=== PATIENT | male | born 1980 | race Asian ===

== ENCOUNTER 2018-06-27 08:50 | Emergency (ER) | payer BC ==
[2018-06-27 08:56] VITALS: BMI 20.9
[2018-06-27] MEDS ORDERED: LACTATED RINGERS SOLUTION 1000 ML INFUS.BAG IV ONE ×2 (09:07→10:33)
[2018-06-27] MEDS ORDERED: ONDANSETRON 4 MG/2 ML VIAL IVPUSH ONE ×2 (09:07→10:35)
[2018-06-27] MEDS ORDERED: ONDANSETRON 4 MG/2 ML VIAL ONE (09:11)
[2018-06-27] MEDS ORDERED: FAMOTIDINE 20 MG/50 ML IVPB 20 MG/50 ML MG IVPB ONE ×2 (09:14→09:16)
--- NOTE | 2018-06-27 09:21 | PDOC ---
Attending Attestation - Resident Resident Name: Sumanth Muse - ED Attending Attestation I have performed the following: I have examined & evaluated the patient, The case was reviewed & discussed with the resident, I agree w/resident's findings & plan - HPI HPI: 06/27/18 09:18 38 YOM with no medical history presenting with abdominal cramping, n/v/d, x 2 days, no fevers. +suspicious food intake, ate raw oysters and [place] food on [place] night, and then the following day developed epigastric abdominal cramping. +watery diarrhea resolving, residual nausea and NBNB emesis. no travel. no surgeries. no ETOH binge drinking, tobacco or drug use. - Physicial Exam PE: 06/27/18 09:19 NAD, well appearing, MMM, nl conjunctiva, anicteric; neck supple. lungs clear, RRR, abdomen soft nontender. No CVAT . MARC x4. No peripheral edema. normal color for ethnicity, WWP. - Medical Decision Making 06/27/18 09:16 38 YOM with no medical history presenting with abdominal cramping, n/v/d, x 2 days, no fevers. +suspicious food intake, ate raw oysters and [place] food on Thursday night, and then the following day developed epigastric abdominal cramping. +watery diarrhea resolving, residual nausea and NBNB emesis. no travel. no surgeries. no ETOH binge drinking, tobacco or drug use. DDx abdominal pain: gastroenteritis, food poisoning, viral syndrome. GERD, PUD , esophageal spasm, pancreatitis, hepatitis, constipation, colitis, biliary colic, clinically doubt: appy or diverticulitis as no lower quad tenderness, doubt ureterolithiasis/renal colic, no cvat or hematuria/urinary sx to suggest infection as well. vitals wnl, no fever, normotensive, HR normal labs and lytes: normal, reassuring LFTs and lipase normal given pepcid, IVF, zofran, with clinical improvement. abdomen soft and benign, non peritoneal to suggest intra abdominal pathology. Dispo: Pt to be discharged in stable condition. Patient and family made aware of impression and plan, return precautions discussed (including but not limited to worsening pain or symptoms), fevers, or signs of infection, chest pain, respiratory distress, inability to tolerate oral intake, dehydration, syncope, or neurologic changes). Follow up with PMD as recommended, follow up information provided, take medications as instructed for duration of time including Zofran for nausea. continue with supportive care, oral fluid hydration , avoid triggers and precipitants. All questions answered to patient's satisfaction and expressed understanding and comfort with this. 06/27/18 09:59
[2018-06-27 09:23] LABS: BASO % 0.6 % (0-2.0); EOS % 1.2 % (0-4.5); HEMATOCRIT 48.7 % (35.4-49); HEMOGLOBIN 16.6 GM/dL (11.7-16.9); MCH 30.3 pg (25.7-33.7); MEAN CELL VOLUME 89.1 fl (80-96); MEAN PLT VOLUME 7.7 fl (7.5-11.1); MONO % 7.2 % (3.8-10.2); PLATELET COUNT 223 K/MM3 (134-434); RBC 5.47 M/mm3 (4.00-5.60); RDW 12.8 % (11.9-15.9); WHITE BLOOD COUNT 4.5 K/mm3 (4.0-10.0)
--- NOTE | 2018-06-27 09:33 | PDOC ---
History of Present Illness <Cami Chavira - Last Filed: 06/27/18 10:01> - General History Source: Patient Exam Limitations: No Limitations - History of Present Illness Initial Comments: 06/27/18 09:20 The patient is a 38M with no PMH who presents to the ER with complaints of nausea, vomiting, and abdominal pain. The patient states that he ate some oysters and other foods 2 evenings ago. Since then, he's had nausea, NBNB vomiting, and watery diarrhea with diffuse abdominal cramping. He denies any blood in his stool, recent abx use, and any abdominal surgeries. He denies testicular pain, dysuria, and discharge. <Sumanth Muse - Last Filed: 06/27/18 12:24> - General Chief Complaint: Nausea/Vomiting Stated Complaint: Nausea/Vomiting/ABD PAIN Time Seen by Provider: 06/27/18 08:59 Past History <Cami Chaviraraffi - Last Filed: 06/27/18 10:01> - Past Medical History COPD: No - Suicide/Smoking/Psychosocial Hx Smoking History: Never smoked <Sumanth Muse - Last Filed: 06/27/18 12:24> - Past Medical History Allergies/Adverse Reactions: Allergies Allergy/AdvReac Type Severity Reaction Status Date / Time No Known Allergies Allergy Verified 06/27/18 08:57 Home Medications: Ambulatory Orders Metoclopramide HCl [Reglan -] 10 mg PO DAILY #10 tablet 06/27/18 Ondansetron [Zofran Odt -] 4 mg SL TID PRN #9 od.tablet 06/27/18 Review of Systems - Review of Systems Able to Perform ROS?: Yes Comments:: 06/27/18 09:34 GENERAL/CONSTITUTIONAL: No fever or chills. No weakness. HEAD, EYES, EARS, NOSE AND THROAT: No change in vision. No ear pain or discharge. No sore throat. CARDIOVASCULAR: No chest pain, palpitations, or lightheadedness. RESPIRATORY: No cough, wheezing, shortness of breath, or hemoptysis. GASTROINTESTINAL: Positive for nausea, vomiting, diarrhea, and abdominal cramping. GENITOURINARY: No dysuria, frequency, hematuria, or change in urination. MUSCULOSKELETAL: No joint or muscle swelling or pain. No neck or back pain. SKIN: No rash or lesions. Is the patient limited Trinidadian proficient: No <Sumanth Muse - Last Filed: 06/27/18 12:24> *Physical Exam - Vital Signs Last Vital Signs Temp Pulse Resp BP Pulse Ox 98.3 F 88 18 132/88 99 06/27/18 08:53 06/27/18 08:53 06/27/18 08:53 06/27/18 08:53 06/27/18 08:53 <Cami Chavira - Last Filed: 06/27/18 10:01> - Vital Signs Last Vital Signs Temp Pulse Resp BP Pulse Ox 98.3 F 88 18 132/88 99 06/27/18 08:53 06/27/18 08:53 06/27/18 08:53 06/27/18 08:53 06/27/18 08:53 - Physical Exam Comments: 06/27/18 09:34 GENERAL: Well developed, well nourished. Awake and alert. No acute distress. HEENT: Normocephalic, atraumatic. Hearing grossly normal. Moist mucous membranes. PERRLA, EOMI. No conjunctival pallor. Sclera are non-icteric. NECK: Supple. Full ROM. CARDIOVASCULAR: Regular rate and rhythm. No murmurs, rubs, or gallops. PULMONARY: No evidence of respiratory distress. Lungs clear to auscultation bilaterally. No wheezing, rales or rhonchi. ABDOMINAL: Soft. Non-tender. Non-distended. No rebound or guarding. GENITOURINARY: No CVA tenderness bilaterally. MUSCULOSKELETAL: Normal range of motion at all joints. No bony deformities or tenderness. EXTREMITIES: No cyanosis. No clubbing. No edema. No calf tenderness or swelling. SKIN: Warm and dry. Normal capillary refill. No rashes. No jaundice. NEUROLOGICAL: Alert, awake, appropriate. Cranial nerves 2-12 grossly intact. Normal speech. Gait is normal without ataxia. PSYCHIATRIC: Cooperative. Good eye contact. Appropriate mood and affect. <Sumanth Muse - Last Filed: 06/27/18 12:24> ED Treatment Course - LABORATORY CBC & Chemistry Diagram: 06/27/18 09:10 06/27/18 09:10 - ADDITIONAL ORDERS Additional order review: Laboratory Results 06/27/18 09:10 Sodium 142 Potassium 4.0 Chloride 106 Carbon Dioxide 25 D Anion Gap 11 BUN 13 Creatinine 1.1 Creat Clearance w eGFR > 60 Random Glucose 112 H D Calcium 9.6 Total Bilirubin 1.5 H AST 19 D ALT 30 Alkaline Phosphatase 69 Total Protein 7.8 Albumin 4.2 Lipase 150 06/27/18 09:10 RBC 5.47 MCV 89.1 MCHC 34.0 RDW 12.8 MPV 7.7 Neutrophils % 59.0 Lymphocytes % 32.0 Monocytes % 7.2 Eosinophils % 1.2 Basophils % 0.6 - Medications Given in the ED: ED Medications Discontinued Medications Generic Name Dose Route Start Last Admin Trade Name Freq PRN Reason Stop Dose Admin Famotidine/Sodium Chloride 20 mg in 50 mls @ 100 mls/hr 06/27/18 09:16 09:17 Pepcid 20 Mg Premixed Ivpb - IVPB 06/27/18 09:45 100 mls/hr ONCE ONE Administration Lactated Ringer's 1,000 ml 06/27/18 09:07 06/27/18 09:11 Lactated Ringers Solution IV 06/27/18 09:08 1,000 ml ONCE ONE Administration Ondansetron HCl 4 mg 06/27/18 09:07 06/27/18 09:17 Zofran Injection IVPUSH 06/27/18 09:08 4 mg ONCE ONE Administration <Cami Chavira - Last Filed: 06/27/18 10:01> - LABORATORY CBC & Chemistry Diagram: 06/27/18 09:10 06/27/18 09:10 - Medications Given in the ED: ED Medications Discontinued Medications Generic Name Dose Route Start Last Admin Trade Name Freq PRN Reason Stop Dose Admin Lactated Ringer's 1,000 ml 06/27/18 09:07 06/27/18 09:11 Lactated Ringers Solution IV 06/27/18 09:08 1,000 ml ONCE ONE Administration Ondansetron HCl 4 mg 06/27/18 09:07 06/27/18 09:17 Zofran Injection IVPUSH 06/27/18 09:08 4 mg ONCE ONE Administration <Sumanth Muse - Last Filed: 06/27/18 12:24> Medical Decision Making - Medical Decision Making 06/27/18 09:35 The patient is a 38M with no PMH who presents to the ER with nausea, vomiting, and diffuse abdominal cramping after having oysters 2 evenings ago. Likely gastroenteritis. Will give fluids, zofran, and pepcid, and check labs including lipase. Pending labs. 06/27/18 10:13 Labs WNL. Tbili elevated to 1.5 but AST/ALT WNL. Pt states that he felt strong cramps as he had a sip of fluids. Will continue hydration and give reglan. 06/27/18 11:32 Pt complaining of worsening pain. Given IV tylenol for cramping and will PO challenge with applesauce and sandwich. 06/27/18 12:24 Pt ate the sandwich and feels much better. Will d/c with PCP f/u. <Sumanth Muse - Last Filed: 06/27/18 12:24> *DC/Admit/Observation/Transfer - Discharge Dispostion Decision to Admit order: No <Cami Chavira - Last Filed: 06/27/18 10:01> - Discharge Dispostion Decision to Admit order: No <Sumanth Muse - Last Filed: 06/27/18 12:24> Diagnosis at time of Disposition: Nausea, vomiting and diarrhea - Discharge Dispostion Disposition: HOME Condition at time of disposition: Improved - Prescriptions Prescriptions: Metoclopramide HCl [Reglan -] 10 mg PO DAILY #10 tablet Ondansetron [Zofran Odt -] 4 mg SL TID PRN #9 od.tablet PRN Reason: Nausea - Referrals Referrals: Kevon Callahan MD [Primary Care Provider] - - Patient Instructions Printed Discharge Instructions: DI for Diarrhea and Traveler's Diarrhea -- Adult, DI for Nausea -- Adult, DI for Vomiting -- Adult Additional Instructions: drink plenty of fluids pepcid for stomach acid may drink soup and juice, light diet and advance as tolerated. zofran three times a day as needed for nausea if worsening symptoms such as high fever, worse pain, dehydration or inability to tolerate oral intake, return sooner for eval avoid oysters and food precipitants follow up with primary doctor as needed. Print Language: FRISIAN - Post Discharge Activity
[2018-06-27 09:44] LABS: ALBUMIN 4.2 g/dl (3.4-5.0); ANION GAP 11 MMOL/L (8-16); BLOOD UREA NITROGEN 13 mg/dL (7-18); CALCIUM 9.6 mg/dL (8.5-10.1); CHLORIDE 106 mmol/L (98-107); CO2 25 mmol/L (21-32); GLUCOSE,RANDOM 112 mg/dL (74-106); LIPASE 150 U/L (73-393); SODIUM 142 mmol/L (136-145)
[2018-06-27 09:46] LABS: BILIRUBIN,TOTAL 1.5 mg/dL (0.2-1.0); CREATININE 1.1 mg/dL (0.7-1.3); SGOT/AST 19 U/L (15-37); SGPT/ALT 30 U/L (12-78)
[2018-06-27 09:47] LABS: ALK PHOS 69 U/L (45-117); TOT PROT 7.8 g/dl (6.4-8.2)
[2018-06-27] MEDS ORDERED: METOCLOPRAMIDE HCL INJECTION 10 MG/2 ML VIAL IVPB ONE (10:40)
[2018-06-27] MEDS ORDERED: METOCLOPRAMIDE HCL INJECTION 10 MG/2 ML VIAL ONE (10:45)
[2018-06-27] MEDS ORDERED: ACETAMINOPHEN 1000 MG/100 ML VIAL (NON FORMULARY) IVPB ONE (11:11)
[2018-06-27] MEDS ORDERED: ACETAMINOPHEN INJECTION 100 ML IVPB ONE (11:13)
[2018-06-27 11:35] VITALS: BP 126/76; PULSE 66; TEMP 97.9
== END 2018-06-27 12:42 | disposition home or self-care (01) ==
LOC: JER 08:50
PROC: 3E033GC Introduction of Other Therapeutic Substance into Peripheral Vein, Percutaneous Approach (ICD-10-PCS; principal; 2018-06-27)
PROC: 3E033GC Introduction of Other Therapeutic Substance into Peripheral Vein, Percutaneous Approach (ICD-10-PCS; 2018-06-27)
PROC: 3E033NZ Introduction of Analgesics, Hypnotics, Sedatives into Peripheral Vein, Percutaneous Approach (ICD-10-PCS; 2018-06-27)
DX: R10.84 Generalized abdominal pain (principal); R11.2 Nausea with vomiting, unspecified; R19.7 Diarrhea, unspecified
CPT/HCPCS: 36415; 80053; 83690; 85025; 99282-25; J0131